=== PATIENT | male | born 1955 | race Caucasian/White ===

== ENCOUNTER 2022-06-22 05:40 | Day surgery (SDC) | payer MEDICARE, BC ==
[2022-06-18 16:04] LABS: BASOPHILS % (AUTO) 0.4 % (0-1); EOSINOPHILS # (AUTO) 0.1 X10'3 (0-0.9); EOSINOPHILS % (AUTO) 1.6 % (0-6); LYMPHOCYTES # (AUTO) 1.1 X10'3 (1.1-4.8); LYMPHOCYTES % (AUTO) 17.1 % (21-51); MEAN CORPUSCULAR HEMOGLOBIN 32.4 PG (27.0-31.0); MEAN CORPUSCULAR HGB CONC 33.9 g/dL (33.0-36.5); MEAN CORPUSCULAR VOLUME 95.8 FL (78-98); MEAN PLATELET VOLUME 9.1 FL (7.4-10.4); MONOCYTES # (AUTO) 0.7 X10'3 (0-0.9); MONOCYTES % (AUTO) 11.3 % (2-12); NEUTROPHILS # (AUTO) 4.5 X10'3 (1.8-7.7); NEUTROPHILS % (AUTO) 69.6 % (42-75); PRE OP HEMATOCRIT 47.8 % (42.0-52.0); PRE OP HEMOGLOBIN 16.2 g/dL (14.0-17.9); PRE OP PLATELET COUNT 168 X10'3 (140-440); RED BLOOD COUNT 4.99 X10'6 (4.70-6.10); RED CELL DISTRIBUTION WIDTH 13.1 % (11.5-14.5)
[2022-06-18 16:09] LABS: ALBUMIN/GLOBULIN RATIO 1.3 (1.1-1.5); ALKALINE PHOSPHATASE 68 IU/L (46-116); BLOOD UREA NITROGEN 11 MG/DL (7-18); BUN/CREATININE RATIO 12.4 (5.4-32.0); CHLORIDE 104 MMOL/L (99-107); CREATININE 0.89 MG/DL (0.60-1.10); PRE OP ALT 33 U/L (30-65); PRE OP ANION GAP 6 (8-16); PRE OP AST 28 U/L (10-37); PRE OP BILIRUB, TOTAL 0.6 MG/DL (0.0-1.0); PRE OP GLUCOSE 115 MG/DL (70-104); PRE OP POTASSIUM 3.9 MMOL/L (3.4-5.1); PRE OP SODIUM 142 MMOL/L (135-145); TOTAL CARBON DIOXIDE 31.6 MMOL/L (24-32); TOTAL PROTEIN 7.2 G/DL (6.4-8.2); eGFR 86 ML/MIN
[2022-06-22] VITALS (7 sets, daily range): BP systolic 114–135; BP diastolic 73–88
[~2022-06-22] VITALS: Ht 190.5 cm; Wt 134.6 kg
[~2022-06-22 05:40] MED LIST: ACET-2119 PO; CHOL20004 PO; LOSA25TA41 PO; SIMV-45 PO; TEST75GE5 TOP; WARF4TAB69 PO; famotidine 20mg tablet PO ONE; ringers solution, lacted 1,000 ML IV SCH
--- NOTE | 2022-06-22 06:30 | NUR ---
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 HE WOULD HAVE TO KEEP GOING BACK FOR SURGERY BECAUSE HIS SHUNT KEPT MALFUNCTIONING. PT ALSO HAD A BRAIN BLEED AFTER A FALL IN 2019. Addendum: 06/22/22 at 1237 by Brigitte Means RN Amended: Links added.
[2022-06-22] MEDS ORDERED: BUPIVAcaine/PF 5 mg/ml 10ml ONE (06:52)
[2022-06-22] MEDS ORDERED: fentaNYL/PF 50MCG/1 ML 2ML syringe ONE (07:26)
[2022-06-22] MEDS ORDERED: midazolam 1 mg/ML 2ml injection ONE (07:26)
[2022-06-22] MEDS ORDERED: cefazolin/dext.iso 2gm/100ml 100 ML IV ONE (07:30)
[2022-06-22] MEDS ORDERED: ceFAZolin 1000mg inj ONE ×2 (07:35)
[2022-06-22] MEDS ORDERED: ketorolac trometh. 30mg/ml inj. ONE (07:38)
[2022-06-22] MEDS ORDERED: LIDOcaine 0.5% (5mg/ml) 50ml vial ONE (07:51)
[2022-06-22] MEDS ORDERED: HYDROcodone/acetaminophen 10/325mg tab PO PRN (08:00)
--- NOTE | 2022-06-22 08:00 | NUR ---
Received from OR via BED, accompanied by Anesthesiologist and report given by Anesthesiologist. PATIENT WAKING UP, NO S/S OF PAIN, V/S WNL, SCD ON, 20G TO LUE, RIGHT WRIST DRESSING CDI W/ SLING. ICE AND ELEVATED RUE.
--- NOTE | 2022-06-22 08:40 | NUR ---
PATIENT A&OX4, DENIES PAIN, V/S WNL, SCD OFF, 20G TO LUE D/C, RIGHT WRIST DRESSING CDI W/ SLING. ICE AND ELEVATED RUE. I HAVE REVIEWED D/C INSTRUCTIONS WITH PATIENT and they have verbalized understanding patient d/c home with all belongings and family gave transport home.
== END 2022-06-22 08:40 | disposition home or self-care (01) ==
LOC: PAS 05:40
PROVIDERS: ATTEND Orthopaedic Surgery
DX: M65.341 Trigger finger, right ring finger (principal); G91.1 Obstructive hydrocephalus; M19.011 Primary osteoarthritis, right shoulder; M19.012 Primary osteoarthritis, left shoulder; E78.5 Hyperlipidemia, unspecified; I10 Essential (primary) hypertension; E66.01 Morbid (severe) obesity due to excess calories; Z68.37 Body mass index [BMI] 37.0-37.9, adult; I69.354 Hemiplegia and hemiparesis following cerebral infarction affecting left non-dominant side; Z79.899 Other long term (current) drug therapy; Z79.01 Long term (current) use of anticoagulants; Z98.890 Other specified postprocedural states; Z72.89 Other problems related to lifestyle; Z86.718 Personal history of other venous thrombosis and embolism; Z80.9 Family history of malignant neoplasm, unspecified
CPT/HCPCS: 26055; 36415; 80053; 82948; 85025; 93005; A6222; J0690; J1885; J2250; J3010; J3490; J7030; J7120; Z7506; Z7512; A4215; A6449; A7000

== ENCOUNTER 2023-10-24 05:41 | Day surgery (SDC) | payer MEDICARE, BC ==
[2023-10-20 15:17] LABS: BASOPHILS # (AUTO) 0.1 X10'3 (0-0.2); BASOPHILS % (AUTO) 1.3 % (0-1); EOSINOPHILS # (AUTO) 0.2 X10'3 (0-0.9); EOSINOPHILS % (AUTO) 3.4 % (0-6); LYMPHOCYTES # (AUTO) 1.3 X10'3 (1.1-4.8); LYMPHOCYTES % (AUTO) 22.1 % (21-51); MEAN CORPUSCULAR HEMOGLOBIN 31.2 PG (27.0-31.0); MEAN CORPUSCULAR HGB CONC 33.8 g/dL (33.0-36.5); MEAN CORPUSCULAR VOLUME 92.3 FL (78-98); MEAN PLATELET VOLUME 9.4 FL (7.4-10.4); MONOCYTES # (AUTO) 0.6 X10'3 (0-0.9); MONOCYTES % (AUTO) 10.5 % (2-12); NEUTROPHILS # (AUTO) 3.6 X10'3 (1.8-7.7); NEUTROPHILS % (AUTO) 62.7 % (42-75); PRE OP HEMATOCRIT 47.5 % (42.0-52.0); PRE OP HEMOGLOBIN 16.1 g/dL (14.0-17.9); PRE OP PLATELET COUNT 145 X10'3 (140-440); PRE OP WHITE BLOOD COUNT 5.8 10'3 (4.8-10.8); RED BLOOD COUNT 5.15 X10'6 (4.70-6.10); RED CELL DISTRIBUTION WIDTH 13.8 % (11.5-14.5)
[2023-10-20 15:32] LABS: ALBUMIN 3.8 G/DL (3.4-5.0); ALBUMIN/GLOBULIN RATIO 1.1 (1.1-1.5); ALKALINE PHOSPHATASE 120 IU/L (46-116); BLOOD UREA NITROGEN 9 MG/DL (7-18); BUN/CREATININE RATIO 10.6 (10.0-20.0); CALCIUM 9.1 MG/DL (8.5-10.1); CHLORIDE 103 MMOL/L (99-107); CREATININE 0.85 MG/DL (0.60-1.10); PRE OP ALT 30 U/L (30-65); PRE OP ANION GAP 11 (8-16); PRE OP AST 16 U/L (10-37); PRE OP BILIRUB, TOTAL 0.7 MG/DL (0.0-1.0); PRE OP GLUCOSE 104 MG/DL (70-104); PRE OP POTASSIUM 4.2 MMOL/L (3.4-5.1); PRE OP SODIUM 139 MMOL/L (135-145); TOTAL CARBON DIOXIDE 25.3 MMOL/L (24-32); TOTAL PROTEIN 7.2 G/DL (6.4-8.2); eGFR 90 ML/MIN
[2023-10-24] VITALS (8 sets, daily range): BP systolic 116–139; BP diastolic 75–103; PULSE 63–74; RESP 10–18; TEMP 97.5; O2SAT 85–100
[~2023-10-24] VITALS: Ht 190.5 cm; Wt 130.0 kg
[~2023-10-24 05:41] MED LIST changes: -ACET-2119 PO; +CHOL100046 PO; -CHOL20004 PO; +Cefazolin 3 GM/100ML NS IVPB 100 ML IV ONE; -WARF4TAB69 PO; +WARF6TAB49 PO; +vancomycin 1,500 MG in NS 300ml IV soln IV ONE
[2023-10-24] MEDS ORDERED: BUPIVAcaine/PF 2.5mg/ml (0.25%) 10ml vial ONE (06:50)
[2023-10-24 07:00] LABS: INR 1.1 INR; PRE OP PARTIAL THROMB. TIME 28 SECONDS (22-32); PROTHROMBIN TIME 11.2 SECONDS (9.0-12.0)
[2023-10-24] MEDS ORDERED: LIDOcaine 1% 30ml preserv. free vial ONE (07:12)
[2023-10-24] MEDS ORDERED: midazolam 1 mg/ML 2ml injection ONE (07:18)
[2023-10-24] MEDS ORDERED: fentaNYL/PF 50MCG/1 ML 2ML syringe ONE (07:18)
[2023-10-24] MEDS ORDERED: labetalol 20mg/4ml (5mg/ml) syringe IV PRN (07:25)
[2023-10-24] MEDS ORDERED: proCHLORperazine 10 MG/2 ml inj IV PRN (07:25)
[2023-10-24] MEDS ORDERED: meperidine/PF 25mg/ml syringe IV PRN ×3 (07:25)
[2023-10-24] MEDS ORDERED: morphine 4 MG/ML inj SYRINge IV PRN (07:25)
[2023-10-24] MEDS ORDERED: morphine 2 MG/ML inj. syringe IV PRN (07:25)
[2023-10-24] MEDS ORDERED: enalaprilat dihydrate 2.5mg/2ml vial IV PRN (07:25)
[2023-10-24] MEDS ORDERED: ondansetron/PF 4mg/2ml inj IV PRN (07:25)
[2023-10-24] MEDS ORDERED: ringers solution, lacted 1,000 ML IV SCH (07:25)
[2023-10-24] MEDS ORDERED: ketorolac trometh. 30mg/ml inj. ONE (07:32)
[2023-10-24] MEDS: BUPIVAcaine/PF 5 MG/ML 10ML VIAL IJ ONE (07:54)
[2023-10-24] MEDS ORDERED: HYDROcodone/acetaminophen 10/325mg tab PO PRN (08:00)
== END 2023-10-24 09:23 | disposition home or self-care (01) ==
LOC: PAS 05:41
PROVIDERS: ATTEND Orthopaedic Surgery
DX: M65.332 Trigger finger, left middle finger (principal); I45.10 Unspecified right bundle-branch block; I10 Essential (primary) hypertension; E66.01 Morbid (severe) obesity due to excess calories; Z86.73 Personal history of transient ischemic attack (TIA), and cerebral infarction without residual deficits; Z86.718 Personal history of other venous thrombosis and embolism; Z79.01 Long term (current) use of anticoagulants; Z79.890 Hormone replacement therapy; Z79.899 Other long term (current) drug therapy; Z98.890 Other specified postprocedural states; Z68.35 Body mass index [BMI] 35.0-35.9, adult
CPT/HCPCS: 26055; 36415; 80053; 82948; 85025; 85610; 85730; 93005; A4215; A6222; A6402; A6449; A7000; J0690; J1885; J2001; J2250; J3010; J3490; J7030; J7120; Z7506; Z7512; Z7610; J0665